=== PATIENT | female | born 1955 | race American Indian/Alaskan Native ===

== ENCOUNTER 2018-06-05 13:12 | Outpatient (CLI) | payer BC ==
--- NOTE | 2018-06-08 14:34 | Mammography Report ---
BILATERAL DIGITAL SCREENING MAMMOGRAM with CAD: 06/05/18 13:12:00 CLINICAL: Routine screening. COMPARISON:[facility] 09/04/15 FINDINGS: The breasts are heterogeneously dense, which may obscure small masses. Previously described left breast masses at 6 o'clock middle depth and 11 o'clock middle depth have resolved. No mass, architectural distortion or suspicious calcifications. IMPRESSION: No mammographic evidence of malignancy. BI-RADS CATEGORY: 1 - - Negative RECOMMENDATION: Routine mammographic screening in one year. COMMENT: Patient follow-up letters are generated by our [employer] application.
== END 2018-06-05 13:13 | disposition home or self-care (01) ==
LOC: SPVWC 13:12
PROVIDERS: ATTEND Internal Medicine
DX: Z12.31 Encounter for screening mammogram for malignant neoplasm of breast (principal)
CPT/HCPCS: 77067

== ENCOUNTER 2020-05-12 11:24 | Outpatient (CLI) | payer BC ==
--- NOTE | 2020-05-12 15:16 | Mammography Report ---
DIGITAL SCREENING MAMMOGRAM WITH CAD, 05/12/2020 CLINICAL INFORMATION / INDICATION: Routine screening mammography. TECHNIQUE: Digital bilateral 2D mammography was obtained in the craniocaudal and mediolateral obliqu e projections. This examination was interpreted with the benefit of Computer-Aided Detection analysis . COMPARISON: 06/05/2018 FINDINGS: Breast Density: There are scattered areas of fibroglandular density. No dominant mass, suspicious calcifications, or architectural distortion in either breast. No interval change. IMPRESSION: No mammographic evidence of malignancy. Follow up recommendation: Routine yearly BI-RADS Category 1: Negative. A "normal" or negative report should not discourage follow up or biopsy of a clinically significant f inding. A written summary of these findings will be mailed to the patient. The patient will be entered into a mammography reporting system which will generate a reminder letter for the patient's next appointmen t at the appropriate interval. The [employer] recommends yearly mammograms starting at age 40 and continuing as l olivia as a woman is in good health. Breast MRI is recommended for women with an approximate 20-25% or greater lifetime risk of breast cancer, including women with a strong family history of breast or ova yazmin cancer or who have been treated for Hodgkin's disease. Signer Name: Alexa Yan MD Signed: 05/12/2020 3:11 PM Workstation Name: [id number]
== END 2020-05-12 11:25 | disposition home or self-care (01) ==
LOC: SPVWC 11:24
PROVIDERS: ATTEND Internal Medicine
DX: Z12.31 Encounter for screening mammogram for malignant neoplasm of breast (principal)
CPT/HCPCS: 77067

== ENCOUNTER 2021-10-30 16:03 | Outpatient (CLI) | payer BC ==
--- NOTE | 2021-10-31 12:18 | Mammography Report ---
DIGITAL SCREENING MAMMOGRAM WITH CAD, 10/30/2021 CLINICAL INFORMATION / INDICATION: Routine screening mammography. TECHNIQUE: Digital bilateral 2D mammography was obtained in the craniocaudal and mediolateral obliqu e projections. This examination was interpreted with the benefit of Computer-Aided Detection analysis . COMPARISON: 05/12/2020, 06/05/2018 FINDINGS: Breast Density: There are scattered areas of fibroglandular density. No dominant mass, suspicious calcifications, or architectural distortion in either breast. There has been no significant interval change. IMPRESSION: No mammographic evidence of malignancy. Follow up recommendation: Routine yearly screening mammogram. BI-RADS Category 1: NEGATIVE A "normal" or negative report should not discourage follow up or biopsy of a clinically significant f inding. A written summary of these findings will be mailed to the patient. The patient will be entered into a mammography reporting system which will generate a reminder letter for the patient's next appointmen t at the appropriate interval. The [employer] recommends yearly mammograms starting at age 40 and continuing as l olivia as a woman is in good health. Breast MRI is recommended for women with an approximate 20-25% or greater lifetime risk of breast cancer, including women with a strong family history of breast or ova yazmin cancer or who have been treated for Hodgkin's disease. Signer Name: Crystal Ross MD Signed: 10/31/2021 12:13 PM Workstation Name: [id number]
== END 2021-10-30 16:04 | disposition home or self-care (01) ==
LOC: SPVWC 16:03
PROVIDERS: ATTEND Internal Medicine
DX: Z12.31 Encounter for screening mammogram for malignant neoplasm of breast (principal)
CPT/HCPCS: 77067